=== PATIENT | female | born 1965 | race Caucasian/White ===

== ENCOUNTER 2017-02-01 08:55 | Day surgery (SDC) | payer BC ==
[~2017-02-01 08:55] MED LIST: RINGERS SOLUTION,LACTATED 1,000 ML IV PRN
--- OUTSIDE RECORDS SUMMARY | 2017-02-01 08:59 | XMS REPORT | Continuity of Care Document ---
:1965 Author Organization [employer] Address [place] [address] Care Team Providers Name Role Phone Sharon Lazaro Primary Care Provider [phone] Source Comments This disclosure is being made pursuant to the [employer] program and maynot contain all information available regarding this patient.[employer] Active Allergies and Adverse Reactions Allergen Noted Date Severity Reactions Comments Sulfa Antibiotics 04/22/2016 High Hives Current Medications Be aware that medications may not be up to date as of this document. Alwaysverify current medications with the patient. Prescription Sig. Disp. Refills Start Date End Date Status phentermine (ADIPEX-P) Take 37.5 mg by 0 04/01/2016 Active 37.5 MG tablet mouth 2 (two) times daily. topiramate (TOPAMAX) 25 Take 25 mg by 5 04/14/2016 Active MG tablet mouth nightly. diclofenac (VOLTAREN) Take 1 tablet by 60 tablet 11 05/06/2016 Active 75 MG EC tablet mouth 2 (two) times daily. Active Problems Not on file Social History Tobacco Use Types Packs/Day Years Used Date Never Smoker Smokeless Tobacco: Never Used Alcohol Use Drinks/Week oz/Week Comments No Last Filed Vital Signs Vital Sign Reading Time Taken Blood Pressure 122/78 04/22/2016 4:26 PM CDT Pulse 100 04/22/2016 4:26 PM CDT Temperature - - Respiratory Rate - - Height 1.676 m (5' 6") 04/22/2016 4:26 PM CDT Weight 66.951 kg (147 lb 9.6 oz) 04/22/2016 4:26 PM CDT Body Mass Index 23.83 04/22/2016 4:26 PM CDT Oxygen Saturation - - Plan of Care Health Maintenance Due Date Last Done Comments Tetanus/Pertussis (1 - Tdap) 10/12/1983 Pap Smear 1985 Colonoscopy 2014 Mammogram 2014 Well Adult Visit 2014 Influenza Immunization (#1) 2016 Results from Last 3 Months Not on file
[2017-02-01] MEDS ORDERED: RINGERS SOLUTION,LACTATED 1,000 ML IV ONE (09:32)
[2017-02-01] MEDS ORDERED: RINGERS SOLUTION,LACTATED 1,000 ML IV PRN (10:21)
[2017-02-01] MEDS ORDERED: PANTOPRAZOLE SODIUM 40 MG in NORMAL SALINE 100 ML IV ONE (10:45)
[2017-02-01] MEDS ORDERED: PANTOPRAZOLE SODIUM 40 MG/100 ML PIGGYBACK IV ONE (11:00)
[2017-02-01 11:38] VITALS: BP 104/67
--- NOTE | 2017-02-01 13:50 | OR ---
Operative Report - Dictated Report Narrative: Operative Report Date of operation: 02/01/2017 Preoperative diagnosis: Anemia Postoperative diagnosis: Esophagitis and gastropathy (pathology and CLOtest pending). Normal colonoscopy. Operation: EGD with biopsies. Colonoscopy Surgeon: Dr Hitchcock Anesthesia: JOSH WALKER CRNA Indications for procedure: The patient is a 51-year-old female referred by A Dami GALEASP. She has iron deficiency anemia. She has had some bleeding on the rectum and upper GI symptoms. She's had no previous dedicated colon studies. There is no family history of colon cancer. Findings: Esophagitis and gastropathy (pathology and CLOtest pending). External hemorrhoids. Normal colonoscopy Narrative of procedure: The patient was identified preoperatively, and prior to the administration of anesthetic a multidisciplinary timeout was observed EGD: With the patient in the recumbent position, a bite-block was placed, intravenous sedation was administered, and the patient's eyes covered with a towel. The flexible fiberoptic gastroscope was advanced into the posterior pharynx which appeared normal. The supraglottic larynx appeared normal. The cords appeared normal, moved well, and opposed in the midline. The scope was advanced under direct vision into the proximal esophagus which appeared normal. The esophagus appeared freely distensible with normal mucosa. The esophageal mucosa appeared normal down to just above the gastroesophageal junction where there was some mild inflammation. The GE junction appeared normally distensible. The scope was advanced into the stomach which was insufflated with air. There was fischer gastric erythema and friability but no braeden ulcers or neoplastic lesions were appreciated including a retroflexed view of the gastric fundus. The scope was redirected toward the pylorus.. The pylorus appeared patent. The scope was advanced into the duodenal bulb which appeared normal. The scope was advanced further to the horizontal portion of the duodenum which appeared normal, specifically the villous architecture appeared well preserved and clear bile was present. The scope was slowly withdrawn through the duodenal bulb with confirmation that no active ulcer was present. The scope was withdrawn into the stomach and hostess party sales representative biopsies of gastric mucosa obtained for CLOtest and pathology. The biopsy sites were seen to be hemostatic. The insufflated air was removed from the stomach, the scope withdrawn from the patient, and this portion of the procedure terminated. COLONOSCOPY: The patient was then placed in the left lateral position, and the perineum was inspected. There was no evidence of pilonidal disease or skin breakdown. The external appearance of the anus was normal with exception of an engorged hemorrhoid. Sphincter tone was good. The flexible fiberoptic colonoscope was inserted into the rectum which was insufflated with air. The rectal mucosa and submucosal vascular pattern appeared normal, the prep was seen to be complete. The scope was advanced through the sigmoid colon, up the descending colon, and around the splenic flexure where the triangular haustral architecture of the transverse colon was seen. The scope was advanced across the transverse colon, around the hepatic flexure to the cecum, where the confluence of tenia and the ileocecal valve were identified. The mucosa at this level appeared normal. The scope was then slowly withdrawn in a circular fashion so that all aspects of colonic mucosa were inspected. The colon was relatively normal in course and caliber. The haustral architecture appeared well preserved throughout with no evidence of external compression. The mucosa and submucosal vascular pattern appeared normal, specifically there was no gross evidence to suggest colitis or inflammatory bowel disease and no AV malformations were seen. No braeden diverticular openings were demonstrated No polyps were encountered. The scope was gradually withdrawn to the level of the rectum. As much insufflated air as possible was removed. The scope was withdrawn from the patient and the procedure terminated. The patient tolerated the anesthetic and procedure well without complication and was transferred back to the ambulatory surgery area awake and in stable condition. The patient remained stable throughout a period of postoperative observation. She denied abdominal discomfort, was able to tolerate by mouth intake, and was up without assistance. I shared the operative findings with the patient and she was given copies of the photographs which appear in the medical record. She was given a single dose of Protonix 40 mg IV prior to discharge. She was discharged home with instructions not to engage in hazardous activity today, but may resume normal activity tomorrow, and advance diet as tolerated. She is to continue those medications as listed in the history and physical exam. I made arrangements to contact her with the biopsy reports and will make additional recommendations for treatment and follow-up based upon those results. Reviewed and electronically signed
== END 2017-02-01 08:56 | disposition home or self-care (01) ==
LOC: AMB 08:55
PROVIDERS: ATTEND Surgery
PROC: 0DJD8ZZ Inspection of Lower Intestinal Tract, Via Natural or Artificial Opening Endoscopic (ICD-10-PCS; principal; 2017-02-01 09:40)
PROC: 0DB68ZX Excision of Stomach, Via Natural or Artificial Opening Endoscopic, Diagnostic (ICD-10-PCS; 2017-02-01 09:40)
DX: Z12.11 Encounter for screening for malignant neoplasm of colon (principal); K21.0 Gastro-esophageal reflux disease with esophagitis; K52.81 Eosinophilic gastritis or gastroenteritis; D50.0 Iron deficiency anemia secondary to blood loss (chronic); K64.4 Residual hemorrhoidal skin tags; I10 Essential (primary) hypertension; Z68.23 Body mass index [BMI] 23.0-23.9, adult
CPT/HCPCS: 43239; G0121